=== PATIENT | male | born 2000 | race Caucasian/White ===

== ENCOUNTER 2023-06-26 15:09 | Outpatient (CLI) | payer OTHER, SELFPAY ==
--- NOTE | 2023-06-26 15:30 | MR_ITS ---
[address] [address] Phone:?[phone] Fax:?[phone] Referring Physician Information: Giancarlo Marie M.D. [id number] [id number] Phone:?[phone] Fax:?[phone] Patient:Pavel Brumfield Walter.O.B:?2000 Sex:?Male Phone:?[phone] [facility] MRN:?[id number] Exam Date:?06/26/2023 EXAM: MRI OF THE LEFT WRIST, WITHOUT CONTRAST CLINICAL: Evaluate for scaphoid fracture. COMPARISONS: X-rays including 06/24/2023. TECHNICAL: Multiplanar multisequence MRI of the left wrist was obtained. SEDATION: None. CONTRAST: None. FINDINGS: Joints/Osseous structures: There is mild marrow edema with question of underlying nondisplaced fracture involving the trapezium. Marrow edema involves the peripheral distal scaphoid and there is minimal mild marrow edema involving the peripheral base of the first metacarpal. Remaining osseous structures appear intact. No osseous subluxation or dislocation. No significant joint effusion. TFCC: Fibrocartilage disc proper is intact. The remainder of the triangular fibrocartilage complex is intact. Ligaments: Scapholunate: No sprain/tear or disassociation. Lunotriquetral: No sprain/tear. There is irregularity and ill-defined partial tearing/sprain injury involving the radial collateral ligament of the wrist between the radial styloid and scaphoid. Tendons: Flexors: Intact without significant tendinosis or tenosynovitis. Extensors: ECU & 6th extensor compartment: There is ulnar subluxation/near dislocation of the ECU in relation to the ulnar groove. ECU otherwise appears intact and unremarkable. 1st - 5th extensor compartments: Intact without significant tendinosis or tenosynovitis. Neurovascular: Median: Unremarkable carpal tunnel without convincing neuritis or intrinsic/extrinsic masses. Ulnar: Unremarkable Guyon's canal without intrinsic/extrinsic masses. IMPRESSION: 1. Mild marrow edema with question of underlying nondisplaced fracture involving the trapezium. Marrow edema also involves the peripheral distal scaphoid and minimal marrow edema involves the peripheral base of the first metacarpal without additional discrete fracture identified. Consider follow-up with CT for further evaluation. 2. Sprain injury with ill-defined partial tearing involving the radial collateral ligament of the wrist. 3. Ulnar subluxation/near dislocation of the ECU in relation to the ulnar groove. No flexor or extensor tendon tear. 4. Intact TFCC. JCZ Electronically signed on 06/27/2023 10:57:00 AM by Victor Manuel Townsend D.O.
== END 2023-06-26 15:10 | disposition home or self-care (01) ==
LOC: MRI 15:09
PROVIDERS: PCP Family Medicine; Visit Provider Orthopaedic Surgery Sports Medicine
DX: S62.002A Unspecified fracture of navicular [scaphoid] bone of left wrist, initial encounter for closed fracture (principal); S63.502A Unspecified sprain of left wrist, initial encounter
CPT/HCPCS: 73221

== ENCOUNTER 2023-10-10 08:42 | Outpatient (CLI) | payer OTHER, SELFPAY ==
--- NOTE | 2023-10-10 09:00 | CRLHL7_ITS ---
For Patients: As a result of the Century Cures Act, medical imaging exams and procedure reports are released immediately into your electronic medical record. You may view this report before your referring provider. If you have questions, please contact your health care provider. INDICATION: Follow-up scaphoid fracture. COMPARISON: 05 February 2023 and 09 May 2023 plain film. TECHNIQUE: Multidetector imaging left wrist with axial, coronal and sagittal reformats. FINDINGS: Intact scaphoid. Small bone island at the body and of the scaphoid tubercle. Carpal alignment is anatomic. No degenerative or inflammatory change. IMPRESSION: No scaphoid fracture or other acute injury findings. Please note that all CT scans at this facility use dose modulation, iterative reconstruction, and/or weight-based dosing when appropriate to reduce radiation dose to as low as reasonably achievable. Dictated by Holland Varela MD @ 10/10/2023 1:47:16 PM (Electronically Signed)
== END 2023-10-10 08:43 | disposition home or self-care (01) ==
PROVIDERS: PCP Family Medicine; Visit Provider Orthopaedic Surgery Sports Medicine
DX: S62.002A Unspecified fracture of navicular [scaphoid] bone of left wrist, initial encounter for closed fracture (principal)
CPT/HCPCS: 73200